=== PATIENT | male | born 1945 | race Caucasian/White ===

== ENCOUNTER 2020-11-07 11:14 | Outpatient (CLI) | payer MEDICARE, OTHER, SELFPAY | END 2020-11-07 11:15 | disposition home or self-care (01) | LOC: ANHAUDIO 11:16 | PROVIDERS: PCP Emergency Medicine; Visit Provider Otolaryngology | DX: H66.91 Otitis media, unspecified, right ear (principal); H90.3 Sensorineural hearing loss, bilateral | CPT/HCPCS: 92557; 92567 ==

== ENCOUNTER 2020-11-26 10:40 | Outpatient (CLI) | payer MEDICARE, OTHER, SELFPAY ==
--- NOTE | 2020-11-26 11:04 | ECG_ITS ---
Measurements Intervals [place] Rate: 73 P: 11 SC: 164 QRS: -11 QRSD: 104 T: 42 QT: 439 QTc: 487 Interpretive Statements SINUS RHYTHM ATRIAL COUPLET, ATRIAL TRIPLET AND VENTRICULAR PREMATURE COMPLEX EARLY PRECORDIAL R/S TRANSITION ABNORMAL ECG Electronically Signed On 11-26-2020 11:35:23 CDT by Gianluca Oneill D.O.
[2020-11-26 11:56] LABS: Hematocrit 38.1 % (42.0-52.0); Hemoglobin 12.1 g/dL (14.0-18.0)
== END 2020-11-26 10:41 | disposition home or self-care (01) ==
PROVIDERS: Anesthesiology; PCP Emergency Medicine; Visit Provider Otolaryngology
DX: D64.9 Anemia, unspecified (principal); I10 Essential (primary) hypertension; Z01.818 Encounter for other preprocedural examination; R94.31 Abnormal electrocardiogram [ECG] [EKG]
CPT/HCPCS: 36415; 85014; 85018; 93005

== ENCOUNTER 2020-12-04 02:07 | Day surgery (SDC) | payer MEDICARE, OTHER, SELFPAY ==
[2020-11-19 13:55] VITALS: BMI 34.9
--- NOTE | 2020-12-02 06:24 | PM.HPGS ---
History of Present Illness History of Present Illness Consent: Risks, benefits, and alternatives have been discussed and questions answered. Patient agrees to proceed with procedure. Chief complaint: R TM Peforation Narrative: Fred Cotto is a 75 year old male with a right tympanic membrane perforation long history of intermittent drainage and hearing loss Review of Systems Review of Systems: All systems reviewed & are unremarkable except as noted in HPI and below PMFSH Family History Family History Father Hypertension Cerebrovascular accident Mother Breast cancer Sibling Alcoholism Social History Social History Smoking packs per day: 1 Smoking cigarettes per day: 20.0 Years smoked: 5 Smoking pack-years: 5.00 Smoking status: Former smoker Tobacco type: cigarettes Smoking end date: 08/21/69 Alcohol intake: former Alcohol use details: SOCIAL DRINKER IN PAST Substance use: never Substance use type: does not use Additional living arrangements comments: Spiritual care concerns: No Meds Home Medications and Allergies Home Medications Medication Instructions Recorded Confirmed Type carisoprodol 350 mg tablet 350 mg PO HS 09/24/20 11/19/20 History citalopram 20 mg tablet 20 mg PO HS 09/24/20 11/19/20 History fesoterodine 8 mg tablet,extended 8 mg PO DAILY 09/24/20 11/19/20 History release 24 hr pantoprazole 40 mg tablet,delayed 40 mg PO QAM 09/24/20 11/19/20 History release sildenafil 100 mg tablet 100 mg PO DAILY PRN 09/24/20 11/19/20 History simvastatin 40 mg tablet 40 mg PO DAILY 09/24/20 11/19/20 History tamsulosin 0.4 mg capsule 0.4 mg PO DAILY 09/24/20 11/19/20 History Lactobac 40-Bifido 3-S.thermop 1 cap PO DAILY 11/19/20 11/19/20 History [Probiotic] ascorbic acid (vitamin C) 1 g PO DAILY 11/19/20 11/19/20 History bupropion HCl [Wellbutrin SR] 100 mg PO BID 11/19/20 11/19/20 History cholecalciferol (vitamin D3) 25 mcg PO DAILY 11/19/20 11/19/20 History docusate sodium [Stool Softener] 100 mg PO BID 11/19/20 11/19/20 History ferrous sulfate 65 mg PO DAILY 11/19/20 11/19/20 History folic acid 0.8 mg PO DAILY 11/19/20 11/19/20 History gabapentin 300 mg PO TID 11/19/20 11/19/20 History magnesium carb,citrate,oxide 600 mg PO DAILY 11/19/20 11/19/20 History [Magnesium Complex] melatonin 10 mg PO HS 11/19/20 11/19/20 History meloxicam 15 mg PO DAILY 11/19/20 11/19/20 History multivitamin [Multiple Vitamin] 1 tablet PO DAILY 11/19/20 11/19/20 History prazosin 10 mg PO HS 11/19/20 11/19/20 History saw palmetto 500 mg PO DAILY 11/19/20 11/19/20 History verapamil 120 mg PO DAILY 11/19/20 11/19/20 History vitamin E 400 unit PO DAILY 11/19/20 11/19/20 History zinc 100 mg PO DAILY 11/19/20 11/19/20 History Allergies Allergy/AdvReac Type Severity Reaction Status Date / Time NKDA Allergy Unknown Unknown Uncoded 11/19/20 13:47 Exam Narrative: chest clear heart without murmurs abdomen soft extremities negative TM perforation on the right central Assessment and Plan Additional Plan plan is a right tympanoplasty
[2020-12-04] VITALS (7 sets, daily range): BP systolic 135–188; BP diastolic 81–106; PULSE 58–94; RESP 16–20; TEMP 36.1–36.2; O2SAT 91–100; BMI 35.9
--- NOTE | 2020-12-04 06:09 | WPDHPUPDATE1 ---
History and Physical Update Update Date/Time: 12/04/20 06:09 History and Physical has been reviewed, including an updated exam of the patient. There are NO changes in the patient's condition. Risks, benefits, and alternatives have been discussed and questions answered. Patient agrees to proceed with procedure.
--- NOTE | 2020-12-04 07:16 | WPDANESEPPF ---
Anes - Initial Pre Proc Eval Procedure: Operation Date: 12/04/20 08:30 Proposed Procedures p Right Tympanoplasty - Antelmo Gamez MD Date/Time: 12/04/20 07:16 Surgeon: Antelmo Gamez MD Pre Op Diagnosis: R TM Peforation Patient Data Age: 75 Gender: M Height: 1.91 m Weight: 127 kg Allergies Allergy/AdvReac Type Severity Reaction Status Date / Time NKDA Allergy Unknown Unknown Uncoded 11/19/20 13:47 Home Medications Medication Instructions Recorded Confirmed Type carisoprodol 350 mg tablet 350 mg PO HS 09/24/20 11/19/20 History citalopram 20 mg tablet 20 mg PO HS 09/24/20 11/19/20 History fesoterodine 8 mg tablet,extended 8 mg PO DAILY 09/24/20 11/19/20 History release 24 hr pantoprazole 40 mg tablet,delayed 40 mg PO QAM 09/24/20 11/19/20 History release sildenafil 100 mg tablet 100 mg PO DAILY PRN 09/24/20 11/19/20 History simvastatin 40 mg tablet 40 mg PO DAILY 09/24/20 11/19/20 History tamsulosin 0.4 mg capsule 0.4 mg PO DAILY 09/24/20 11/19/20 History Lactobac 40-Bifido 3-S.thermop 1 cap PO DAILY 11/19/20 11/19/20 History [Probiotic] ascorbic acid (vitamin C) 1 g PO DAILY 11/19/20 11/19/20 History bupropion HCl [Wellbutrin SR] 100 mg PO BID 11/19/20 11/19/20 History cholecalciferol (vitamin D3) 25 mcg PO DAILY 11/19/20 11/19/20 History docusate sodium [Stool Softener] 100 mg PO BID 11/19/20 11/19/20 History ferrous sulfate 65 mg PO DAILY 11/19/20 11/19/20 History folic acid 0.8 mg PO DAILY 11/19/20 11/19/20 History gabapentin 300 mg PO TID 11/19/20 11/19/20 History magnesium carb,citrate,oxide 600 mg PO DAILY 11/19/20 11/19/20 History [Magnesium Complex] melatonin 10 mg PO HS 11/19/20 11/19/20 History meloxicam 15 mg PO DAILY 11/19/20 11/19/20 History multivitamin [Multiple Vitamin] 1 tablet PO DAILY 11/19/20 11/19/20 History prazosin 10 mg PO HS 11/19/20 11/19/20 History saw palmetto 500 mg PO DAILY 11/19/20 11/19/20 History verapamil 120 mg PO DAILY 11/19/20 11/19/20 History vitamin E 400 unit PO DAILY 11/19/20 11/19/20 History zinc 100 mg PO DAILY 11/19/20 11/19/20 History Patient hx anesthesia problems: none Family hx anesthesia problems: none Results Review: All pre-operative results and documents have been reviewed as part of the pre-operative evaluation. [facility] Past Medical History Medical History Arthritis Cancer GERD (gastroesophageal reflux disease) Hypertension JADE (obstructive sleep apnea) Family History Family History Father Hypertension Cerebrovascular accident Mother Breast cancer Sibling Alcoholism Social History Social History Smoking packs per day: 1 Smoking cigarettes per day: 20.0 Years smoked: 5 Smoking pack-years: 5.00 Smoking status: Former smoker Tobacco type: cigarettes Smoking end date: 08/21/69 Alcohol intake: former Alcohol use details: SOCIAL DRINKER IN PAST Substance use: never Substance use type: does not use Living arrangements: with family Additional living arrangements comments: Spiritual care concerns: No Anes - Eval Final PreProcedure Day of Procedure 12/04/20 07:16 Patient weight: obese Heart: regular rate and rhythm Lungs: clear to auscultation Airway: Mallampati scale class II Neurological: alert and oriented Last oral intake: >/= 8 hours ASA classification: III Emergent: no Anesthetic plan: proceed Anesthesia type and monitoring: general LMA and standard monitoring Results Review: All pre-operative results and documents have been reviewed as part of the pre-operative evaluation. Informed Consent: The patient's anesthetic plan and its attendant risks and benefits were discussed with the patient/family/POA. Questions were solicited and answers provided to the satisfaction of the patient/family/POA.
[2020-12-04] MEDS: ACETAMINOPHEN 500 MG TABLET 1000 MG PO (07:25)
[2020-12-04] MEDS: LACTATED RINGERS 1,000 ML 30 ML IV CONT (07:38)
[2020-12-04] MEDS: CIPROFLOXACIN HCL 0.3% OP SOLN 2.5 ML BTL 4 DROP RIGHT EAR (09:12)
[2020-12-04] MEDS: NEOMYCIN/POLYMYXIN B/PRAMOXINE 15 GM CREAM 1 APPLIC TOPICAL (09:16)
--- NOTE | 2020-12-04 09:31 | W.PM.PROC2 ---
Procedure Note - Detailed Date of Procedure 12/04/20 Pre-op Diagnosis R TM Peforation Post-op Diagnosis same Procedure Performed Exploratory tympanotomy placement of a T-tube Surgeon Antelmo Gamez MD Description of Procedure Patient prepped and draped fashion general anesthesia the right ear was sterilely prepped and draped inspected with the microscope there was an atelectatic graft the vascular strip and areas around were injected with xylocaine with adrenaline the graft was markedly thickened however there is no obvious perforation the tympanomeatal flap elevated middle ear entered marked amount of thickening a T-tube inserted drops placed in ear canal Didriksen terminated
[2020-12-04] MEDS: ONDANSETRON INJ 4 MG/2 ML VIAL IV PUSH (10:27)
== END 2020-12-04 11:13 | disposition home or self-care (01) ==
PROVIDERS: PCP Emergency Medicine; Visit Provider Otolaryngology
PROC: (CPT 69436; principal; 2020-12-04 08:30)
DX: H72.91 Unspecified perforation of tympanic membrane, right ear (principal); I10 Essential (primary) hypertension; G47.33 Obstructive sleep apnea (adult) (pediatric); K21.9 Gastro-esophageal reflux disease without esophagitis; E66.9 Obesity, unspecified; Z68.36 Body mass index [BMI] 36.0-36.9, adult; Z87.891 Personal history of nicotine dependence
CPT/HCPCS: 69436; A9270; J0171; J1100; J2250; J2405; J2704; J3010; J7120